=== PATIENT | female | born 1995 | race Caucasian/White ===

== ENCOUNTER 2019-08-20 02:30 | Emergency (ER) | payer OTHER ==
[2019-08-20] MEDS ORDERED: hydrOXYzine HCl 25 MG Tab PO ONE (02:52)
--- NOTE | 2019-08-20 02:57 | EDM.PDOC ---
ED HPI GENERAL MEDICAL PROBLEM - General Chief Complaint: Chest Pain Stated Complaint: SOB Time Seen by Provider: 08/20/19 02:44 Source of Information: Reports: Patient History Limitations: Reports: No Limitations - History of Present Illness INITIAL COMMENTS - FREE TEXT/NARRATIVE: This is a 24-year-old female. She drove from [facility] today heading towards [place] but she stopped care for the hotel. Apparently it is raining outside and when she got the hotel she felt somewhat anxious she took a shower thinking that it would ease things up but it did not. She noted she had some shortness of breath and some chest tightness for about an hour and a half. She also complains of dizziness and tunnel vision and eyes pulsating and numbness in her extremities so she comes to the ER for evaluation. She is sighing continually when I interview her her blood pressure is 132/82 pulse is running about 80. Her respiratory rate this site being is about 24. Denies any other acute symptoms. She does have a history of bipolar disorder and anxiety though she does not take anxiety medications. 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 Psychiatric History: Reports: Addiction, Anxiety, Bipolar - Past Surgical History HEENT Surgical History: Reports: Adenoidectomy, Tonsillectomy Social & Family History - Tobacco Use Smoking Status *Q: Never Smoker Second Hand Smoke Exposure: No - Caffeine Use Caffeine Use: Reports: None - Recreational Drug Use Recreational Drug Use: Yes Recreational Drug Type: Reports: Marijuana/Hashish Recreational Drug Use Frequency: Daily ED ROS GENERAL - Review of Systems Review Of Systems: See Below Constitutional: Denies: Fever, Chills HEENT: Reports: No Symptoms Respiratory: Reports: Shortness of Breath. Denies: Wheezing, Cough Cardiovascular: Reports: Chest Pain Endocrine: Reports: No Symptoms GI/Abdominal: Denies: Abdominal Pain, Nausea, Vomiting : Reports: No Symptoms Musculoskeletal: Reports: No Symptoms Skin: Reports: Rash Neurological: Reports: No Symptoms Psychiatric: Reports: Anxiety Hematologic/Lymphatic: Reports: No Symptoms ED EXAM, GENERAL - Physical Exam Exam: See Below Exam Limited By: No Limitations General Appearance: Alert, WD/WN, Anxious Eye Exam: Bilateral Eye: Normal Inspection Ears: Normal External Exam Nose: Normal Inspection Throat/Mouth: Normal Inspection, Normal Lips, Normal Voice, No Airway Compromise Head: Normocephalic Neck: Supple Respiratory/Chest: No Respiratory Distress, Lungs Clear, Normal Breath Sounds, Other (Mild tachypnea noted) Cardiovascular: Regular Rate, Rhythm, No Murmur GI/Abdominal: Soft, Non-Tender Back Exam: Full Range of Motion Extremities: Normal Inspection, Normal Range of Motion, Other (There is no rash on her arms but she tells me they were kind of red when she was in the shower but that is resolved now) Neurological: Alert, Oriented Psychiatric: Anxious Skin Exam: Warm, Dry EKG INTERPRETATION EKG Date: 08/20/19 Time: 02:35 EKG Interpretation Comments: EKG shows a normal sinus rhythm rate of 85. There are no acute ST or T wave changes. There are no ischemia is noted. Course - Vital Signs Last Recorded V/S: Last Vital Signs Temp 96.5 F L 08/20/19 02:35 Pulse 91 08/20/19 02:35 Resp 20 08/20/19 02:35 BP 132/82 08/20/19 02:35 Pulse Ox 100 08/20/19 02:35 - Orders/Labs/Meds Orders: Active Orders 24 hr Category Date Time Status EKG 12 Lead [EKG Documentation Completion] [RC] URGENT Care 08/20/19 02:49 Active Labs: Laboratory Tests 08/20/19 08/20/19 Range/Units 03:00 03:00 WBC 10.26 H (3.98-10.04) K/mm3 RBC 4.96 (3.98-5.22) M/mm3 Hgb 14.6 (11.2-15.7) gm/dl Hct 42.5 (34.1-44.9) % MCV 85.7 (79.4-94.8) fl MCH 29.4 (25.6-32.2) pg MCHC 34.4 (32.2-35.5) g/dl RDW Std Deviation 40.5 (36.4-46.3) fL Plt Count 318 (182-369) K/mm3 MPV 11.5 (9.4-12.3) fl Neut % (Auto) 46.5 (34.0-71.1) % Lymph % (Auto) 44.2 (19.3-51.7) % Kay % (Auto) 8.3 (4.7-12.5) % Eos % (Auto) 0.6 L (0.7-5.8) Baso % (Auto) 0.3 (0.1-1.2) % Neut # (Auto) 4.77 (1.56-6.13) K/mm3 Lymph # (Auto) 4.54 H (1.18-3.74) K/mm3 Kay # (Auto) 0.85 H (0.24-0.36) K/mm3 Eos # (Auto) 0.06 (0.04-0.36) K/mm3 Baso # (Auto) 0.03 (0.01-0.08) K/mm3 Manual Slide Review Normal smear Sodium 140 (136-145) mEq/L Potassium 3.4 L (3.5-5.1) mEq/L Chloride 104 (98-107) mEq/L Carbon Dioxide 22 (21-32) mEq/L Anion Gap 17.4 H (5-15) BUN 19 H (7-18) mg/dL Creatinine 1.1 H (0.55-1.02) mg/dL Est Cr Clr Drug Dosing 76.69 mL/min Estimated GFR (MDRD) > 60 (>60) mL/min BUN/Creatinine Ratio 17.3 (14-18) Glucose 111 H (74-106) mg/dL Calcium 9.7 (8.5-10.1) mg/dL Total Bilirubin 0.8 (0.2-1.0) mg/dL AST 16 (15-37) U/L ALT 24 (14-59) U/L Alkaline Phosphatase 111 (46-116) U/L Troponin I < 0.017 (0.00-0.056) ng/mL Total Protein 8.2 (6.4-8.2) g/dl Albumin 4.7 (3.4-5.0) g/dl Globulin 3.5 gm/dL Albumin/Globulin Ratio 1.3 (1-2) Meds: Medications Discontinued Medications Generic Name Dose Route Start Last Admin Trade Name [place] PRN Reason Stop Dose Admin Hydroxyzine HCl 25 mg 08/20/19 02:52 08/20/19 03:08 Atarax PO 08/20/19 02:53 25 mg ONETIME ONE Administration - Re-Assessments/Exams Free Text/Narrative Re-Assessment/Exam: 08/20/19 04:37 Spoke to the patient regarding the test results that everything was normal other than she needed to drink more water as she is traveling. He is to go home and sleep is much as possible and drink more water. Departure - Departure Time of Disposition: 04:37 Disposition: Home, Self-Care 01 Condition: Good Clinical Impression: Mild dehydration, Anxiety, generalized Instructions: Dehydration, Adult, [id number], Generalized Anxiety Disorder, Adult Referrals: PCP,None [Primary Care Provider] - Forms: ED Department Discharge Additional Instructions: Go back to the hotel and sleep is much as possible and continue to drink increased water and fluids as you continue to travel, return to the ER as needed Sepsis Event Note - Evaluation Sepsis Screening Result: No Definite Risk - Focused Exam Vital Signs: Vital Signs Temp Pulse Resp BP Pulse Ox 08/20/19 02:35 96.5 F L 91 20 132/82 100 Date Exam was Performed: 08/20/19 Time Exam was Performed: 04:37 - My Orders Last 24 Hours: My Active Orders 08/20/19 02:49 EKG 12 Lead [EKG Documentation Completion] [RC] URGENT - Assessment/Plan Last 24 Hours: My Active Orders 08/20/19 02:49 EKG 12 Lead [EKG Documentation Completion] [RC] URGENT
== END 2019-08-20 04:49 | disposition home or self-care (01) ==
LOC: JD.ED 02:30
DX: E86.0 Dehydration (principal); F41.1 Generalized anxiety disorder; F31.9 Bipolar disorder, unspecified; Z88.8 Allergy status to other drugs, medicaments and biological substances; Z79.899 Other long term (current) drug therapy
CPT/HCPCS: 36415; 80053; 84484; 85025; 93005; 99285; A9270; 93010; 99284